=== PATIENT | female | born 1950 | race African-American/Black ===

== ENCOUNTER 2018-08-06 00:36 | Inpatient (IN) ==
[2018-08-06 01:30] LABS: BASO# 0.02 X1000 (0.0-0.2); BASO% 0.4 % (0.0-0.8); EOS# 0.36 X1000 (0.0-0.7); EOS% 7.8 % (0.0-10.0); HEMATOCRIT 37.3 % (37.0-47.0); HEMOGLOBIN 12.1 g/dL (12.0-16.0); LYMPH# 2.54 X1000 (1.2-3.4); MCH 27.5 PG (27-31); MCHC 32.4 g/dL (33-37); MCV 84.8 FL (81-99); MONO# 0.42 X1000 (0.11-0.59); MONO% 9.1 % (1.7-9.3); MPV 10.9 FL (7.4-10.4); NEUT# 1.28 X1000 (1.4-6.5); NEUT% 27.7 % (42.2-75.2); PLT 261 X1000 (130-400); RDW 15.7 % (11.5-14.5); WBC 4.62 X1000 (4.8-10.8)
[2018-08-06 01:36] LABS: INR 0.95; PROTIME 13.5 Seconds (11.0-16.0)
[2018-08-06 01:39] LABS: URINE SOURCE CLEAN CATCH
[2018-08-06 01:48] LABS: BILIRUBIN URINE NEGATIVE (NEGATIVE); BLOOD URINE NEGATIVE (NEGATIVE); COLOR STRAW; GLUCOSE URINE NEGATIVE (NEGATIVE); KETONE URINE NEGATIVE (NEGATIVE); LEUKOCYTES URINE NEGATIVE (NEGATIVE); NITRITE URINE NEGATIVE (NEGATIVE); PH URINE 7.5; PROTEIN URINE NEGATIVE (NEGATIVE); SP GRAVITY URINE 1.001; TURBIDITY URINE CLEAR (CLEAR); UROBILINOGEN URINE NORMAL (NORMAL)
[2018-08-06 01:49] LABS: UR EPITHELIAL CELLS <10 /HPF (<10); URINE BACTERIA NEGATIVE /HPF; URINE RBC <10 /HPF (<10); URINE WBC <10 /HPF (<10)
[2018-08-06 02:08] LABS: AGAP 13; ALB/GLOB RATIO 1.5; ALBUMIN 4.1 g/dL (3.5-5.0); ALKALINE PHOSPHATASE 149 U/L (32-104); BUN 13 mg/dL (8-22); CALCIUM 9.5 mg/dL (8.8-10.2); CHLORIDE 104 mmol/L (98-107); COSMO 291; CREATININE 0.7 mg/dL (0.5-0.9); ESTIMATED GFR > 60; GLUCOSE 112 mg/dL (70-104); GOT 17 U/L (10-30); GPT 10 U/L (10-36); POTASSIUM 3.9 mmol/L (3.5-5.1); SODIUM 146 mmol/L (136-145); TCO2 29 mmol/L (25-35); TOTAL BILIRUBIN 0.36 mg/dL (0.20-1.00); TOTAL PROTEIN 6.9 g/dL (6.3-8.3)
[2018-08-06] MEDS ORDERED: NS 500 ML IV ONE (03:58)
--- NOTE | 2018-08-06 06:07 | Diag Imaging Result Doc PS360 ---
EXAM: CHEST-PORTABLE HISTORY: stroke like symptoms TECHNIQUE: Portable chest COMPARISON: 07/10/2018 FINDINGS: Poor inspiratory effort. The heart is mildly prominent. The vessels are not distended. There are no infiltrates. No effusion identified. IMPRESSION: Mildly prominent heart. Electronically signed by Moshe Askew 08/06/2018 6:05 AM
--- NOTE | 2018-08-06 06:23 | Diag Imaging Result Doc PS360 ---
CT HEAD W/O CONTRAST - 08/06/2018 INDICATION: stroke like symptoms COMPARISON: None FINDINGS: The ventricles and sulci are normal in size and contour. No intracranial mass or hemorrhage. The skull is intact. The sinuses mastoids and middle ears are clear. There are benign basal ganglia calcifications. IMPRESSION: Negative exam. This exam was performed using automated exposure control, adjustment of mA or kV according to patient size, and/or use of iterative reconstruction technique Electronically signed by Yan Brown 08/06/2018 6:21 AM
[2018-08-06] MEDS ORDERED: TYLENOL PO ONE (07:04)
--- NOTE | 2018-08-06 07:18 | PROVIDER DOCUMENTATION ---
This chart was entered by Chaparrita Adair Scribe, acting as scribe for Romero Newell MD. HPI-Syncope/Dizziness - General Chief Complaint: Near Syncope Stated Complaint: SYNCOPAL EPISODE Time Seen by Provider: 08/06/18 01:05 Source: patient Allergies/Adverse Reactions: Patient Allergies Allergy/AdvReac Type Severity Reaction Status Date / Time No Known Allergies Allergy Verified 08/06/18 01:31 Home Medications: Home Medication List Medication Instructions Recorded Confirmed Last Taken Type Pregabalin [Lyrica] 75 mg PO BID 04/22/12 08/06/18 06/03/18 05:30 History Metoprolol Succinate [Toprol Xl] 50 mg PO DAILY 09/29/15 08/06/18 06/03/18 05:30 History Hydrocodone Bit/Acetaminophen 1 tab PO BID PRN 08/06/18 08/06/18 Unknown History [Hydrocodon-Acetaminoph 7.5-325] Lisinopril/Hydrochlorothiazide 1 tab PO DAILY 08/06/18 08/06/18 Unknown History [Lisinopril-Hctz 20-25 mg Tab] Omeprazole 1 tab PO DAILY 08/06/18 08/06/18 Unknown History - History of Present Illness-Syncope/Dizzy Nature of Presenting Problem: Pt is 67/F presenting to ED after waking up at around 11:30 and feeling like passing out. She sts that she could not get up to go to the bathroom. Pt arrived to ED via EMS. HX of HTN Prior Episodes: reports: no prior history Onset/Duration: reports: 1-3 hours ago Timing: reports: improving Position/Activity at time of episode: reports: lying Symptoms prior to episode: reports: none Context: reports: almost passed out Loss of Consciousness: no loss of consciousness Location of injury. (If syncope resulted in an injury.): reports: none Current Symptoms: reports: lightheaded Recently Seen Here or By Another Healthcare Provider: No Review of Systems - Adult - REVIEW OF SYSTEMS - ADULT Constitutional: reports: no symptoms reported. denies: chills, fever Eyes: reports: no symptoms reported Ears, Nose, Mouth & Throat: reports: no symptoms reported Cardiovascular: reports: no symptoms reported. denies: chest pain Respiratory: denies: cough Gastrointestinal: denies: abdominal pain, nausea, vomiting Genitourinary: reports: no symptoms reported Musculoskeletal: reports: no symptoms reported Integumentary: reports: no symptoms reported Neurological: reports: dizziness/vertigo, syncope. denies: headache/migraines Psychiatric: reports: no symptoms reported Endocrine: reports: no symptoms reported Hematologic/Lymphatic: reports: no symptoms reported Allergic/Immunologic: reports: no symptoms reported All Other Systems: Reviewed and Negative Past History - Adult - PAST MEDICAL HISTORY-ADULT Review of Records: reports: Old Records Reviewed, Nursing Assessment Review, Medications Reviewed, Social history reviewed & non-contributory. Major Childhood Illnesses: reports: denies history Cardiovascular: reports: HTN, hyperlipidemia Respiratory: reports: denies history Gastrointestinal: reports: denies history Obstetrical/Gynecological: reports: denies history Genitourinary: reports: denies history Musculoskeletal: reports: arthritis (left knee), chronic pain, other (nerve damage left foot) Neurological: reports: denies history Endocrine/Immune: reports: denies history Other Conditions: reports: denies history - PRIOR SURGERIES/PROCEDURES Surgical/Procedure History: reports: hysterectomy, BTL, orthopedic (extremity) (L knee), joint replacement (knee), back/neck (back surgery to remove bone spurs 5 years ago) - IMMUNIZATION STATUS Childhood Immunizations: See Nurse Assessment Flu Vaccine: See Nurse Assessment - FAMILY HISTORY Family History: reviewed, not pertinent - SOCIAL HISTORY Smoking: denies, non-smoker Substance Use: none/never Alcohol Use Frequency: never Living Situation: family Physical Exam-General - PHYSICAL EXAM-ADULT Initial Vital Signs Reviewed: Yes - CONSTITUTIONAL General Appearance: appears well, alert, no apparent distress - EYES Eyes: PERRL/EOMI, pink conjunctivae - HEAD, EARS, NOSE, MOUTH & THROAT HENMT: normocephalic/atraumatic, moist mucous membranes, normal ENT inspection, TMs normal, pharynx normal - NECK Neck: non-tender, full range of motion, supple, normal inspection - RESPIRATORY Respiratory: lungs clear - CARDIOVASCULAR Cardiovascular: regular rate, rhythm - GASTROINTESTINAL (ABDOMEN) Abdominal Exam: normal bowel sounds, non tender, soft - LYMPHATIC Lymphatic: no adenopathy - MUSCULOSKELETAL Back Exam: normal inspection, no CVA tenderness, no vertebral tenderness Extremity: normal range of motion, non-tender, normal gait, normal inspection - SKIN Integumentary: normal color, warm/dry - NEUROLOGIC Neurologic: grossly normal - PSYCHIATRIC Psych/Mental Status: normal mood/affect, normal thought content, normal thought process, oriented x 3 Progress - PLAN OF CARE/RESULTS Progress/Plan/Lab Results: Vital Signs - 8 hr 08/06/18 00:41 08/06/18 00:44 08/06/18 01:03 Temperature 98.2 F Pulse Rate 86 107 H 88 Pulse Rate [Sitting] Pulse Rate [Standing] Pulse Rate [Supine] Respiratory Rate 20 17 22 Blood Pressure 168/94 168/94 174/112 Blood Pressure [Sitting] Blood Pressure [Standing] Blood Pressure [Supine] O2 Sat by Pulse Oximetry 95 94 L 96 08/06/18 01:11 08/06/18 01:14 08/06/18 01:15 Temperature Pulse Rate 88 80 89 Pulse Rate [Sitting] Pulse Rate [Standing] Pulse Rate [Supine] Respiratory Rate 21 22 18 Blood Pressure 158/85 162/80 162/106 Blood Pressure [Sitting] Blood Pressure [Standing] Blood Pressure [Supine] O2 Sat by Pulse Oximetry 95 94 L 96 08/06/18 01:21 08/06/18 01:29 08/06/18 03:01 Temperature Pulse Rate 68 69 Pulse Rate [Sitting] 101 H Pulse Rate [Standing] 98 H Pulse Rate [Supine] 82 Respiratory Rate 28 H 22 Blood Pressure 152/66 134/72 Blood Pressure [Sitting] 162/80 Blood Pressure [Standing] 162/106 Blood Pressure [Supine] 158/85 O2 Sat by Pulse Oximetry 95 96 08/06/18 03:31 08/06/18 03:46 08/06/18 04:00 Temperature Pulse Rate 64 65 77 Pulse Rate [Sitting] Pulse Rate [Standing] Pulse Rate [Supine] Respiratory Rate 15 16 20 Blood Pressure 137/62 137/62 Blood Pressure [Sitting] Blood Pressure [Standing] Blood Pressure [Supine] O2 Sat by Pulse Oximetry 94 L 92 L 96 08/06/18 04:01 08/06/18 04:30 08/06/18 05:51 Temperature 98.2 F Pulse Rate 69 73 74 Pulse Rate [Sitting] Pulse Rate [Standing] Pulse Rate [Supine] Respiratory Rate 19 22 21 Blood Pressure 133/74 143/65 Blood Pressure [Sitting] Blood Pressure [Standing] Blood Pressure [Supine] O2 Sat by Pulse Oximetry 95 97 97 Laboratory Results - last 24 hr 08/06/18 08/06/18 08/06/18 00:50 00:50 00:50 WBC 4.62 L RBC 4.40 Hgb 12.1 Hct 37.3 MCV 84.8 MCH 27.5 MCHC 32.4 L RDW Std Deviation 15.7 H Plt Count 261 MPV 10.9 H Immature Gran % (Auto) 0.0 Neut % (Auto) 27.7 L Lymph % (Auto) 55.0 H [place] % (Auto) 9.1 Eos % (Auto) 7.8 Baso % (Auto) 0.4 Immature Gran # (Auto) 0.00 Neut # (Auto) 1.28 L Lymph # (Auto) 2.54 [place] # (Auto) 0.42 Eos # (Auto) 0.36 Baso # (Auto) 0.02 PT 13.5 INR 0.95 PTT (Actin FS) 30.0 Sodium 146 H Potassium 3.9 Chloride 104 Carbon Dioxide 29 Anion Gap 13 BUN 13 Creatinine 0.7 Estimated GFR/1.73 m2 > 60 BUN/Creatinine Ratio 19 Glucose 112 H Calculated Osmolality 291 Calcium 9.5 Total Bilirubin 0.36 AST 17 ALT 10 Alkaline Phosphatase 149 H Troponin T Total Protein 6.9 Albumin 4.1 Globulin 2.8 Albumin/Globulin Ratio 1.5 Urine Source Urine Color Urine Turbidity Urine pH Ur Specific [place] Urine Protein Ur Glucose (Stick) Ur Ketones (Stick) Urine Blood Urine Nitrite Urine Bilirubin Urobilinogen Dipstick Urine Leukocytes Urine WBC (Auto) Urine RBC (Auto) U Epithel Cells (Auto) Urine Bacteria (Auto) 08/06/18 08/06/18 00:50 01:34 WBC RBC Hgb Hct MCV MCH MCHC RDW Std Deviation Plt Count MPV Immature Gran % (Auto) Neut % (Auto) Lymph % (Auto) [place] % (Auto) Eos % (Auto) Baso % (Auto) Immature Gran # (Auto) Neut # (Auto) Lymph # (Auto) [place] # (Auto) Eos # (Auto) Baso # (Auto) PT INR PTT (Actin FS) Sodium Potassium Chloride Carbon Dioxide Anion Gap BUN Creatinine Estimated GFR/1.73 m2 BUN/Creatinine Ratio Glucose Calculated Osmolality Calcium Total Bilirubin AST ALT Alkaline Phosphatase Troponin T < 0.010 Total Protein Albumin Globulin Albumin/Globulin Ratio Urine Source CLEAN CATCH Urine Color STRAW Urine Turbidity CLEAR Urine pH 7.5 Ur Specific [place] 1.001 Urine Protein NEGATIVE Ur Glucose (Stick) NEGATIVE Ur Ketones (Stick) NEGATIVE Urine Blood NEGATIVE Urine Nitrite NEGATIVE Urine Bilirubin NEGATIVE Urobilinogen Dipstick NORMAL Urine Leukocytes NEGATIVE Urine WBC (Auto) <10 Urine RBC (Auto) <10 U Epithel Cells (Auto) <10 Urine Bacteria (Auto) NEGATIVE Orders Category Date Time Status Cardiac Monitoring DIRECTED Care 08/06/18 01:06 Active Finger Stick Blood Sugar (ED) DIRECTED Care 08/06/18 01:06 Active Misc. NRSG Communication Order DIRECTED Care 08/06/18 01:06 Completed CHEST-PORTABLE [RAD] Stat Exams 08/06/18 01:[address] HEAD W/O CONTRAST [CT] Stat Exams 08/06/18 01:06 Completed CBC WITH ELECTRONIC DIFF [HEME] Stat Lab 08/06/18 00:50 Completed COMPREHENSIVE METABOLIC PANEL [CHEM] Stat Lab 08/06/18 00:50 Completed PROTIME WITH INR [COAG] Stat Lab 08/06/18 00:50 Completed PTT [COAG] Stat Lab 08/06/18 00:50 Completed TROPONIN T Stat Lab 08/06/18 00:50 Completed URINALYSIS W/POSS RFLX CULT [URINALYSIS] Stat Lab 08/06/18 01:34 Completed 0.9% Sodium Chloride Inj [Ns] 500 ml Med 08/06/18 03:58 Discontinued IV Wide Open mls/hr Acetaminophen [Tylenol] Med 08/06/18 07:04 Discontinued 650 mg PO NOW ONE EKG [EKG] Stat Ther 08/06/18 01:06 Ordered Result Diagrams: 08/06/18 00:50 08/06/18 00:50 - REASSESSMENT Reassessment #1 Time Reassessed: 01:11 Status: unchanged Reassessment Comment: Pt denies CT Reassessment #2 Time Reassessed: 04:00 Status: improving (has some light headedness.) Reassessment Comment: will administer a bolus and reevaluate. Reassessment #3 Time Reassessed: 06:15 Status: unchanged Reassessment Comment: will admit for Obs. d/w Dr Hennessy. Departure - Departure Date of Disposition Decision: 08/06/18 Time of Disposition Decision: 06:35 DIAGNOSIS: Lightheadedness, Syncope, near Disposition: ADMITTED INPATIENT 09 Certified Medical Emergency: Emergent Condition: Stable Referrals and Follow-Ups: Sparacino,Mihaela J., MD [Primary Care Provider] - Work Excuses: Return to School/Parent Work - Critical Care Note This patient required my direct & personal management of CC.: No Attestation - Physician/ ASHLEY Attestation Patient care was provided by Advanced Practice Provider:: No The physician spent face to face time with patient:: Yes Advanced Practice Provider documentation review:: Supervising physician onsite and consulted in the evaluation and care of this patient. The physician did have a face to face encounter with the patient. This chart was documented by the indicated scribe, (Chaparrita Adair, Scribe) and accurately reflects the services I performed and decisions made by me, Romero Newell MD, as attested by the provider's signature.
--- NOTE | 2018-08-06 08:28 | EKG Report ---
Test Performed on : 08/06/2018 07:57:35 AM Test Reason : LIGHT HEADED Blood Pressure : / mmHG Vent. Rate : 062 BPM Atrial Rate : 062 BPM P-R Int : 152 ms QRS Dur : 076 ms QT Int : 436 ms P-R-T Axes : 056 -13 003 degrees QTc Int : 442 ms Normal sinus rhythm. Minimal voltage criteria for LVH, may be normal variant Borderline ECG When compared with ECG of 10-JUL-2018 13:20, (Unconfirmed) No significant change was found Unconfirmed Result
[2018-08-06] MEDS ORDERED: NS 1,000 ML IV ONE (10:23)
[2018-08-06] MEDS ORDERED: NORCO-7.5 PO PRN (10:27)
--- NOTE | 2018-08-06 10:56 | ED EKG INTERP ---
This chart was entered by Bell Hernadez Scribe, acting as scribe for Ang Rollins DO. EKG Interpretation - EKG Time of EKG reading by physician:: 07:57 EKG Read and Signed by:: Ang Rollins EKG Interpretation (*Must complete 3 of following elements*): Abnormal Rate: 62 Rhythm: normal sinus rhythm QRS: LVH (minimal voltage criteria) [place] Interval: normal Comments: borderline ECG s Attestation - Physician/ ASHLEY Attestation The physician spent face to face time with patient:: No Advanced Practice Provider documentation review:: Supervising physician onsite and consulted in the evaluation and care of this patient. The physician did not have a face to face encounter with the patient. This chart was documented by the indicated scribe, (Bell Hernadez Scribe) and accurately reflects the services I performed and decisions made by Ayo rajput Christophe L., DO, as attested by the provider's signature.
[2018-08-06 11:59] LABS: HEMOGLOBIN A1C 5.9 % (4.8-6.0)
[2018-08-06] MEDS: LYRICA PO SCH ×3 (12:04→21:17)
[2018-08-06 12:26] LABS: TSH 0.57 uIUmL (0.27-4.20)
--- NOTE | 2018-08-06 12:43 | HISTORY AND PHYSICAL ---
PRIMARY CARE PHYSICIAN: Mihaela Yin MD. CHIEF COMPLAINT: Dizziness. HISTORY OF PRESENT ILLNESS: Ms. Mora is a 67-year-old -[place] female with a history of hypertension and lower extremity peripheral neuropathy, who presented to our ER with acute onset of orthostatic dizziness that began this morning at around midnight/1 a.m. She was in her normal state of health last night, had to go to the bathroom this morning, and when she sat up to get out of bed she became very dizzy and tried to get her granddaughter to come help her but was unable to do so. At that time her daughter called 911 and brought her to the ER. She has not had any syncope, loss of consciousness, chest pain. She denies any unilateral weakness or loss of power, no abdominal pain, nausea, vomiting, or dysuria. She reports that she had pizza last night for dinner and drinks Mountain Dew and Coke products frequently. She is also on antihypertensive with diuretic. When she came to the emergency room for evaluation she had a head CT done which did not show anything acute. Her laboratory data only revealed a sodium of 146, otherwise unremarkable. Currently she still has orthostatic dizziness but her orthostatic vital signs were negative. She will be admitted for observation status. PAST MEDICAL HISTORY: 1. Hypertension. 2. Peripheral neuropathy. 3. Lower back pain. PAST SURGICAL HISTORY: 1. Recent lumbar fusion. 2. Bilateral knee arthroplasty. 3. Tubal ligation. 4. Lumbar spine fusion. HOME MEDICATIONS: [place] 7.5 b.i.d. as needed for pain, lisinopril/hydrochlorothiazide 20/25 daily, Lyrica 75 mg b.i.d., omeprazole 20 mg daily, Toprol XL 50 mg daily. SOCIAL HISTORY: She denies tobacco, alcohol or drug use. She is . She lives at home with her granddaughter and daughter. FAMILY HISTORY: Noncontributory. REVIEW OF SYSTEMS: A 14-point review of systems obtained and found to be negative with the exception of the HPI. PHYSICAL EXAMINATION: VITAL SIGNS: Blood pressure is 154/64, heart rate 67, respiratory rate 18, O2 saturation 98% on room air, temperature is 98.2. GENERAL: This is a 67-year-old -[place] female lying in the hospital bed in no acute distress. NEUROLOGIC: She is awake and alert, follows commands. No focal deficits. HEENT: Head is atraumatic and normocephalic. Her pupils are equal, round, and reactive to light. Oral mucosa is somewhat dry. NECK: Trachea is midline. There is no JVD. CHEST: Clear to auscultation. CARDIOVASCULAR: Regular rate and rhythm. S1, S2 is noted. There are no murmurs. GASTROINTESTINAL: Soft, nondistended, nontender. Bowel sounds are active. EXTREMITIES: Without edema. Pulses 1+ bilaterally. DIAGNOSTIC DATA: Head CT negative. EKG normal sinus rhythm without acute ST or T abnormalities. Chest x-ray shows mildly prominent heart. White blood cell count 4.62. Hemoglobin 12.1. Hematocrit 37.3. Platelet count 261. INR 0.95. Sodium 146. Potassium 3.9. Chloride 104. CO2 29. Anion gap 13. BUN 13. Creatinine 0.7. Glucose 112. AST 17. ALT 10. Alkaline phosphatase 149. Troponin negative. Albumin 4.1. Urinalysis is negative. ASSESSMENT AND PLAN: 1. Dizziness: Differentials include dehydration secondary to increased salt intake as well as use of diuretic and poor water intake. She also has symptoms that could relate to vertigo. There are no neurologic symptoms or findings concerning for cerebrovascular accident (CVA). We will hold her hydrochlorothiazide and hydrate her and monitor. We will also trend her cardiac enzymes. If no improvement by tomorrow, would consider carotids or echocardiogram. She may also need referral to ENT. 2. Hypertension: We will hold her lisinopril/hydrochlorothiazide for now. Continue her metoprolol. 3. Lower back pain with lower extremity neuropathy: Stable. Continue home medications. 4. Deep venous thrombosis (DVT) prophylaxis with sequential compression devices (SCDs). 5. Further recommendations to follow. Dictated by DOLLY Cali for Jimi Lopez MD cc: DOLLY Cali MD Kathy J. Sparacino, MD [facility]
--- NOTE | 2018-08-06 16:56 | HISTORY AND PHYSICAL ---
SUBJECTIVE: Patient came in with dizziness and fall yesterday. She denies any upper respiratory symptoms. No tinnitus. No headache. No ear fullness. She denies loss of consciousness but she did fall backwards. Her workup really is unremarkable. Her blood pressure is pretty stable. Her laboratory data was negative. Her head CT and all that is pretty much normal. PROBLEM LIST: Presyncope, it is really kind unclear what her primary diagnosis is. She does not give any good information that suggests any issues with dehydration. Her BUN and creatinine are normal, so we will hydrate her and monitor her, get an echo just for completeness' sake to rule out any other major pathology, and we will continue to follow. DISPOSITION: I think if she is stable into tomorrow, she should be able to go. cc: Jimi Lopez MD
[2018-08-06] MEDS: NORCO-7.5 PO PRN (18:11)
[2018-08-07] MEDS: NORCO-7.5 PO PRN ×2 (02:17→10:25)
[2018-08-07 04:52] LABS: URINE SOURCE CLEAN CATCH
[2018-08-07 04:55] LABS: BILIRUBIN URINE NEGATIVE (NEGATIVE); BLOOD URINE NEGATIVE (NEGATIVE); COLOR YELLOW; GLUCOSE URINE NEGATIVE (NEGATIVE); KETONE URINE NEGATIVE (NEGATIVE); LEUKOCYTES URINE NEGATIVE (NEGATIVE); NITRITE URINE NEGATIVE (NEGATIVE); PROTEIN URINE TRACE mg/dL (NEGATIVE); SP GRAVITY URINE 1.018; TURBIDITY URINE CLEAR (CLEAR); UROBILINOGEN URINE NORMAL (NORMAL)
[2018-08-07 04:56] LABS: UR EPITHELIAL CELLS <10 /HPF (<10); URINE BACTERIA NEGATIVE /HPF; URINE RBC <10 /HPF (<10); URINE WBC <10 /HPF (<10)
[2018-08-07 06:26] LABS: HEMATOCRIT 33.4 % (37.0-47.0); HEMOGLOBIN 10.6 g/dL (12.0-16.0); MCH 27.5 PG (27-31); MCHC 31.7 g/dL (33-37); MCV 86.5 FL (81-99); MPV 10.3 FL (7.4-10.4); RBC 3.86 XMIL (4.2-5.4); RDW 15.7 % (11.5-14.5); WBC 3.48 X1000 (4.8-10.8)
[2018-08-07 06:50] LABS: AGAP 7; BUN 13 mg/dL (8-22); CALCIUM 8.4 mg/dL (8.8-10.2); CHLORIDE 108 mmol/L (98-107); COSMO 285; CREATININE 0.8 mg/dL (0.5-0.9); ESTIMATED GFR > 60; GLUCOSE 96 mg/dL (70-104); SODIUM 143 mmol/L (136-145); TCO2 28 mmol/L (25-35)
[2018-08-07] MEDS: TOPROL XL PO SCH (08:37)
[2018-08-07] MEDS: LYRICA PO SCH ×2 (08:37→20:01)
[2018-08-07] MEDS: PRILOSEC PO SCH (08:37)
[2018-08-07] MEDS ORDERED: MAGNESIUM SULFATE 2 GM/S.W.I. 2 GM/50 ML IVPB IV ONE (13:34)
--- NOTE | 2018-08-07 13:38 | CONSULTATION ---
DATE OF CONSULTATION: 08/07/2018 Ms. Mora is 67 years old and she was dizzy on getting up 2 days ago. She had felt well when she went to bed. She thinks she missed a dose of her blood pressure medicine. She had some headache. When she woke in the night to get up to the bathroom, she was so dizzy and lightheaded that she had a sense she could not walk. She called family for assistance and was helped to the bathroom and returned to bed uneventfully. She felt a little bit lightheaded even reclined, but much worse sitting or standing. She had a sense of being weak all over, weak in both legs, but there was no focal feature. There was no vision disturbance, altered consciousness, altered awareness, or memory gap. Speech was not affected. There was no change in hearing. She presented to the hospital, was evaluated and admitted. She has been recovering since then and feels almost back to baseline now. She reports she has never had an episode like this before. Other than missing a blood pressure medicine dose, she thinks she had not made any medication mistakes. There is no history of head injury. She has not had previous diagnosed stroke or other neurologic event. She has been afebrile. Heart rate was initially 80s-100s, later 60s-70s. She did not have any significant postural blood pressure change checked supine, sitting, standing once. Noncontrast CT was unremarkable. Lab showed mild anemia after hydration. She had worse anemia transiently in 2015 after surgery. Computer record shows carotid ultrasound unremarkable in 2012 when evaluated for a right carotid bruit. Home medicine list includes hydrocodone, lisinopril/hydrochlorothiazide, metoprolol, Lyrica. We did not have urine drug screen this admission. On exam, Ms. Mora is awake, alert, attentive, appropriate, oriented. Speech is not dysarthric. Language function is intact. Memory is good. Head and neck are unremarkable. There is no meningismus. She has full visual soler tested by confrontational finger counting. Extraocular movements are full. Facial motility is symmetric. Facial sensation is intact. Gag is intact. Tongue is midline. She can hear. Shoulder shrug is little bit uncomfortable on the right. Left shoulder shrug is good. Power is symmetric in the limbs. She did well on polzno-su-oodi testing bilaterally. She reports good pinprick appreciation symmetrically over the limbs. Proprioception is normal at the great toe MTP joint bilaterally. I did not test her gait. Reflexes are 1+ at the wrists and trace at the ankles symmetrically. IMPRESSION: Dizziness without definite neurologic explanation. Some of her history sounds like postural lightheadedness. Labyrinthopathy and vertigo may have contributed. I do not see evidence of a primary central nervous system event and specifically, I do not see evidence of brainstem or cerebellar lesion. I encouraged her to take her medicines as prescribed and to keep followup with her primary physician. I do not think we need to do anything further from a neurologic standpoint right now. I would consider brain MRI if dizziness persists or if she has new problems. I will be glad to see her as an outpatient if needed. A trial with meclizine and ENT evaluation could be considered if she develops more features of positional vertigo. Thanks for asking neurology to see Ms. Mora. cc: MD HALIMA Sanders III
--- NOTE | 2018-08-07 15:47 | ECHO REPORT ---
ORDER DATE: 08/07/2018 INTERPRETING PHYSICIAN: Dr. Yanes REQUESTING PHYSICIAN: CLINICAL INDICATIONS: This is a 67-year-old female with presyncope, fall. M-MODE MEASUREMENTS: Right ventricle: cm. Left ventricle end diastole: 4.5 cm. Left ventricle end systole: 2.6 cm. Posterior wall: 1.7 cm. Interventricular septum: 1.7 cm. Left atrium: 3.7 cm. Aortic root: 2.9 cm. SUMMARY OF 2-DIMENSIONAL IMAGIN. The left ventricular function is normal. Ejection fraction was 75%. No wall motion abnormality noted. 2. Right ventricle was normal. 3. Atria appeared to be normal. 4. The aortic valve is normal. Color flow mapping is unremarkable. 5. Mitral valve shows mild to moderate degree of regurgitation. 6. Pulse wave Doppler of mitral inflow shows normal E/A ratio. 7. Tissue Doppler of septal and lateral mitral annulus averages 13 cm. 8. There is no diastolic dysfunction. 9. Tricuspid valve shows mild to moderate degree of regurgitation. 10.Pulmonary pressure appears to be in the order of 53 mmHg. 11.Pulmonic valve is normal. Color flow mapping is unremarkable. 12.There is no pericardial effusion, mass or thrombus. CONCLUSIONS: In summary, this study shows: 1. Normal left ventricular systolic function. Ejection fraction is 75%. 2. Mild to moderate degree of mitral and tricuspid regurgitation. 3. No diastolic dysfunction. 4. Pulmonary pressure is 53 mmHg. 5. There is suggestion of some left atrial enlargement. Clinical correlation is recommended. cc: MD Jimi Zeng MD
--- NOTE | 2018-08-08 03:46 | PROGRESS NOTE ---
DATE: 08/07/2018 SUBJECTIVE: The patient states that her dizziness is improved. She denies having any headache or blurred vision. OBJECTIVE: Vital signs: Temperature 97.9 degrees blood pressure 136/99, heart rate 59, respirations 18, O2 saturation is 99% on room air. General: This is an elderly female lying in bed in no acute distress. Heart: S1, S2 normal. Regular rate and rhythm. Lungs: Clear to auscultation bilaterally. Abdomen: Positive bowel sounds. Soft, nontender, nondistended. Extremities: No edema, no cyanosis. Neurological: The patient is alert and oriented x3. No focal neurologic deficits noted. LABORATORIES: Hemoglobin 10, hematocrit 33, platelets 216,000. Sodium 143, potassium 4, chloride 108, magnesium 1.5, BUN 13, creatinine 0.8, glucose 96. ASSESSMENT AND PLAN: 1. Dizziness. The head CT was noted to be unremarkable. The patient received IV fluids in the ER. This may represent an inner ear issue. We will continue to monitor. If the patient improves, she can be discharged home tomorrow. 2. Hypertension. Continue on Lopressor. 3. Anemia. We will monitor this closely. cc: Petra Agarwal MD
[2018-08-08 06:27] LABS: HEMATOCRIT 35.6 % (37.0-47.0); HEMOGLOBIN 11.6 g/dL (12.0-16.0); MCHC 32.6 g/dL (33-37); MPV 10.9 FL (7.4-10.4); RBC 4.14 XMIL (4.2-5.4); RDW 15.4 % (11.5-14.5); WBC 4.38 X1000 (4.8-10.8)
[2018-08-08 06:48] LABS: AGAP 8; BUN 10 mg/dL (8-22); CALCIUM 8.9 mg/dL (8.8-10.2); CHLORIDE 107 mmol/L (98-107); COSMO 284; CREATININE 0.6 mg/dL (0.5-0.9); ESTIMATED GFR > 60; GLUCOSE 98 mg/dL (70-104); POTASSIUM 4.4 mmol/L (3.5-5.1); SODIUM 143 mmol/L (136-145); TCO2 28 mmol/L (25-35)
[2018-08-08 08:14] VITALS: BP 124/49
[2018-08-08] MEDS: TOPROL XL PO SCH (09:17)
[2018-08-08] MEDS: LYRICA PO SCH (09:17)
[2018-08-08] MEDS: PRILOSEC PO SCH (09:17)
--- NOTE | 2018-08-08 10:44 | PROGRESS NOTE ---
DATE: 08/08/2018 Ms. Mora reports continued improvement. She seems recovered now. She has not had more extreme dizziness or lightheadedness. She does not have any new complaints. I do not have any new suggestion from neurologic standpoint. Would consider brain MRI and ENT referral if dizziness recurs. I will be glad to see her again if needed, but will sign off for now. Thanks for asking Neurology to see Ms. Mora. cc: Sirena Henderson III, MD
--- NOTE | 2018-08-23 16:35 | DISCHARGE SUMMARY ---
ADMISSION DATE: 08/08/2018 DISCHARGE DATE: 08/08/2018 FINAL DISCHARGE DIAGNOSES: 1. Vertigo 2. Hypertension. 3. Anemia. 4. Obesity. CONSULTATIONS: Neurology consultation with Dr. Henderson. IMAGING PERFORMED DURING HOSPITAL STAY: Head CT without contrast which revealed a negative exam. HOSPITAL COURSE: Ms Mora is a 67-year-old female with a history of hypertension and obesity who presented to the ER with a chief complaint of dizziness whenever the patient would move her head. The patient was admitted to the hospitalist service and hydrated with fluids. A head CT was done that was noted to be unremarkable. The following day the patient stated that her dizziness had improved and she was able to ambulate without any difficulty. The patient was also seen by the neurologist, who recommended that if the patient's vertigo returned that she would likely need an ENT evaluation and possibly an MRI. The patient continued to improve clinically and was cleared for discharge home. DISCHARGE MEDICATIONS: 1. Lisinopril/hydrochlorothiazide 1 tab oral daily. 2. Toprol-XL 50 mg oral daily. 3. Omeprazole 1 tab oral daily. 4. Lyrica 75 mg oral twice a day. 5. Inman 7.5/325 one tab oral twice a day p.r.n. for pain. DISCHARGE DIET: Low cholesterol, low sodium diet. ACTIVITY: As tolerated. FOLLOWUP INSTRUCTIONS: The patient will need to follow up with Dr. Yin in 2 weeks. cc: Petra Agarwal MD MTDD
== END 2018-08-08 12:00 | disposition home or self-care (01) | DRG 149 ==
LOC: ED 00:36 → 4N 00:36 → SUATTDRO 08:28
PROVIDERS: ATTEND Internal Medicine
CPT/HCPCS: 70450; 71010; 71045; 80048; 80053; 80061; 81001; 82550; 82607; 82746; 83036; 83721; 83735; 84100; 84439; 84443; 84484; 85025; 85027; 85610; 85730; 93005; 93306; 96360; 97162; 99285; A9270; C8929; J3475; J7030; J7040; Q9957